=== PATIENT | male | born 1960 | race Caucasian/White ===

== ENCOUNTER 2017-07-01 14:47 | Inpatient (IN) | payer MEDICAID ==
[~2017-07-01] VITALS: Ht 167.6 cm; Wt 65.6 kg
[2017-07-01] MEDS ORDERED: SODIUM CHLORIDE 0.9% 1,000 ML IV ONE (15:15)
[2017-07-01] MEDS ORDERED: HALOPERIDOL LACTATE 5 MG/ML VIAL IM ONE (15:30)
[2017-07-01 15:39] LABS: EOSINOPHILS % (AUTO) 0 % (1.0-6.0); HEMATOCRIT 32.7 % (41-53); HEMOGLOBIN 11.2 g/dL (13.5-17.5); LYMPHOCYTES # (AUTO) 0.5 K/uL (1.0-4.8); LYMPHOCYTES % (AUTO) 2.8 % (22.0-44.0); MEAN CORPUSCULAR HGB CONC 34.3 G/dL (31.0-37.0); MEAN CORPUSCULAR VOLUME 90 fL (80-100); MONOCYTES % (AUTO) 5.3 % (2.0-9.0); NEUTROPHILS # (AUTO) 17.5 K/uL (1.8-7.7); PLATELET COUNT (AUTO) 276 K/uL (150-450); RED BLOOD CELL COUNT(AUTO) 3.62 MIL/uL (4.50-5.90); RED CELL DISTRIBUTION WIDTH 15.2 % (11.5-14.5)
[2017-07-01 15:41] LABS: APPEARANCE,URINE CLOUDY (CLEAR); GLUCOSE, URINE (UA) NEGATIVE (NEGATIVE); KETONES,URINE TRACE mg/dL (NEGATIVE); LEUKOCYTE ESTERASE ,URINE NEGATIVE (NEGATIVE); OCCULT BLOOD,URINE NEGATIVE (NEGATIVE); PROTEIN,URINE NEGATIVE (NEGATIVE)
[2017-07-01 15:41] LABS: ANION GAP 13 mmol/L (8-16); CALCIUM, TOTAL 9.2 mg/dL (8.8-10.5); CARBON DIOXIDE 22 mmol/L (22-29); CHLORIDE 104 mmol/L (98-107); CREATININE 1.01 mg/dL (0.60-1.30); GLOMERULAR FILTR. RATE CALC > 60 mL/min (>60); POTASSIUM 3.8 mmol/L (3.5-5.1); SODIUM SERUM 139 mmol/L (136-145); UREA NITROGEN, BLOOD 22 mg/dL (7-18)
[2017-07-01 15:45] LABS: NEUTROPHILS % (AUTO) 91.9 % (40.0-70.0)
[2017-07-01 16:06] LABS: ALANINE AMINOTRANSFERASE 44 U/L (12-78); ALBUMIN 3.5 g/dL (3.4-5.0); ASPARTATE AMINOTRANSFERASE 47 U/L (15-37); BILIRUBIN,TOTAL 0.5 mg/dL (0.1-1.0); CREATINE KINASE, TOTAL 977 U/L (39-308); TOTAL PROTEIN, SERUM 7.3 g/dL (6.4-8.2)
[2017-07-01 16:10] LABS: RBC,URINE 0-2 /HPF (0-2)
[2017-07-01 16:11] LABS: SQUAMOUS EPITHELIAL CELL,UR Rare /LPF (None Seen)
[2017-07-01 16:32] LABS: CREATINE KINASE MB 11.9 ng/mL (0-5)
[2017-07-01] MEDS ORDERED: LORazepam 2 MG/ML VIAL IVP ONE (17:15)
[2017-07-01] MEDS ORDERED: GuaiFENesin/D-METHORPHAN [SUGAR-FREE] 200-20MG/10 ML SYRUP UDCUP PO PRN (17:45)
[2017-07-01] MEDS ORDERED: LORazepam 2 MG TABLET PO PRN (17:45)
[2017-07-01] MEDS ORDERED: LOPERAMIDE HCL 2 MG CAPSULE PO PRN (17:45)
[2017-07-01] MEDS ORDERED: OLANZapine 5 MG RAPDIS TABLET PO PRN (17:45)
[2017-07-01] MEDS ORDERED: TUBERCULIN, PURIFIED PROTEIN DERIVATIVE 5 TU/0.1 ML SYG ID ONE (17:45)
[2017-07-01] MEDS ORDERED: MAGNESIUM HYDROXIDE SUSPENSION 30 ML UDCUP PO PRN (17:45)
[2017-07-01] MEDS ORDERED: PROMETHAZINE HCL 25 MG TABLET PO PRN (17:45)
[2017-07-01] MEDS ORDERED: HydrOXYzine PAMOATE 50 MG CAPSULE PO PRN (17:45)
[2017-07-01] MEDS ORDERED: ACETAMINOPHEN 325 MG TABLET PO PRN (17:45)
[2017-07-01] MEDS ORDERED: ZOLPIDEM TARTRATE 10 MG TABLET PO PRN (17:45)
[2017-07-01] MEDS ORDERED: MAG HYDROX/AL HYDROX/SIMETH ES 30 ML SUSPENSION UDCUP PO PRN (17:45)
[2017-07-01 19:40] VITALS: BP 140/80
[2017-07-01] MEDS ORDERED: INFLUENZA VIRUS VACCINE QVS 2017-18 (3YR+)/PF 60 MCG/0.5 ML SYRINGE IM ONE (20:15)
[2017-07-01] MEDS: OLANZapine 5 MG RAPDIS TABLET PO SCH (20:28)
[2017-07-01] MEDS: THIAMINE HCL 100 MG TABLET PO SCH (20:28)
[2017-07-01] MEDS: SULFAMETHOX/TRIMETH DS 800-160 MG/TABLET PO SCH (20:40)
[2017-07-01] MEDS: DOXYCYCLINE 100 MG CAPSULE PO SCH (20:40)
[2017-07-02 06:22] VITALS: BP 128/82
[2017-07-02 08:02] VITALS: BP 143/81
[2017-07-02 08:20] LABS: BASOPHILS % (AUTO) 0.1 % (0.0-2.0); EOSINOPHILS % (AUTO) 0.4 % (1.0-6.0); HEMATOCRIT 33.8 % (41-53); HEMOGLOBIN 11.5 g/dL (13.5-17.5); LYMPHOCYTES # (AUTO) 1.3 K/uL (1.0-4.8); LYMPHOCYTES % (AUTO) 9.8 % (22.0-44.0); MEAN CORPUSCULAR HGB CONC 34.1 G/dL (31.0-37.0); MEAN CORPUSCULAR VOLUME 91 fL (80-100); MONOCYTES # (AUTO) 0.8 K/uL (0.1-1.0); MONOCYTES % (AUTO) 6.4 % (2.0-9.0); NEUTROPHILS # (AUTO) 10.7 K/uL (1.8-7.7); NEUTROPHILS % (AUTO) 83.3 % (40.0-70.0); PLATELET COUNT (AUTO) 295 K/uL (150-450); RED BLOOD CELL COUNT(AUTO) 3.72 MIL/uL (4.50-5.90); RED CELL DISTRIBUTION WIDTH 15.5 % (11.5-14.5); WHITE BLOOD COUNT (AUTO) 12.8 K/uL (4.5-11.0)
[2017-07-02] MEDS: THIAMINE HCL 100 MG TABLET PO SCH ×2 (08:47→17:03)
[2017-07-02] MEDS: DOXYCYCLINE 100 MG CAPSULE PO SCH ×2 (08:47→17:03)
[2017-07-02] MEDS: CloNIDine HCL 0.1 MG TABLET PO SCH ×2 (08:47→17:03)
[2017-07-02] MEDS: SULFAMETHOX/TRIMETH DS 800-160 MG/TABLET PO SCH ×2 (08:47→17:03)
[2017-07-02] MEDS: FOLIC ACID 1 MG TABLET PO SCH (08:47)
[2017-07-02 09:42] LABS: ALANINE AMINOTRANSFERASE 39 U/L (12-78); ALBUMIN 3.1 g/dL (3.4-5.0); ANION GAP 12 mmol/L (8-16); ASPARTATE AMINOTRANSFERASE 35 U/L (15-37); BILIRUBIN,TOTAL 0.5 mg/dL (0.1-1.0); CALCIUM, TOTAL 8.9 mg/dL (8.8-10.5); CARBON DIOXIDE 24 mmol/L (22-29); CHLORIDE 107 mmol/L (98-107); CREATININE 0.83 mg/dL (0.60-1.30); GLOMERULAR FILTR. RATE CALC > 60 mL/min (>60); POTASSIUM 3.5 mmol/L (3.5-5.1); SODIUM SERUM 143 mmol/L (136-145); THYROID STIMULATING HORMONE 0.51 uIU/mL (0.36-3.74); TOTAL PROTEIN, SERUM 6.8 g/dL (6.4-8.2); UREA NITROGEN, BLOOD 16 mg/dL (7-18)
[2017-07-02] MEDS: MULTIVITAMINS WITH MINERALS, THERAPEUTIC TABLET PO SCH (12:33)
[2017-07-02 16:00] VITALS: BP 138/88
[2017-07-02] MEDS: OLANZapine 5 MG RAPDIS TABLET PO SCH (20:00)
[2017-07-03 06:58] VITALS: BP 108/83
[2017-07-03 08:17] VITALS: BP 116/80
[2017-07-03] MEDS: THIAMINE HCL 100 MG TABLET PO SCH ×2 (08:44→16:21)
[2017-07-03] MEDS: FOLIC ACID 1 MG TABLET PO SCH (08:45)
[2017-07-03] MEDS: SULFAMETHOX/TRIMETH DS 800-160 MG/TABLET PO SCH ×2 (08:45→16:21)
[2017-07-03] MEDS: DOXYCYCLINE 100 MG CAPSULE PO SCH ×2 (08:45→16:21)
[2017-07-03] MEDS: CloNIDine HCL 0.1 MG TABLET PO SCH ×2 (08:45→16:21)
[2017-07-03] MEDS: MULTIVITAMINS WITH MINERALS, THERAPEUTIC TABLET PO SCH (12:26)
[2017-07-03 15:25] VITALS: BP 146/93
[2017-07-03 16:20] VITALS: BP 117/72
[2017-07-03] MEDS ORDERED: IBUPROFEN 600 MG TABLET PO PRN (18:45)
[2017-07-03] MEDS: OLANZapine 10 MG RAPDIS TABLET PO SCH (20:43)
[2017-07-04 06:24] VITALS: BP 130/82
[2017-07-04 08:10] VITALS: BP 138/88
[2017-07-04] MEDS: SULFAMETHOX/TRIMETH DS 800-160 MG/TABLET PO SCH ×2 (08:29→16:38)
[2017-07-04] MEDS: THIAMINE HCL 100 MG TABLET PO SCH ×2 (08:29→16:38)
[2017-07-04] MEDS: FOLIC ACID 1 MG TABLET PO SCH (08:29)
[2017-07-04] MEDS: DOXYCYCLINE 100 MG CAPSULE PO SCH ×2 (08:29→16:38)
[2017-07-04] MEDS: CloNIDine HCL 0.1 MG TABLET PO SCH ×2 (08:29→16:38)
[2017-07-04] MEDS ORDERED: OLAN10TA22 PO (11:07)
[2017-07-04] MEDS: MULTIVITAMINS WITH MINERALS, THERAPEUTIC TABLET PO SCH (12:27)
[2017-07-04 16:00] VITALS: BP 140/90
[2017-07-04] MEDS: OLANZapine 10 MG RAPDIS TABLET PO SCH (20:25)
[2017-07-05 05:38] VITALS: BP 135/73
[2017-07-05] MEDS: SULFAMETHOX/TRIMETH DS 800-160 MG/TABLET PO SCH ×2 (08:16→16:17)
[2017-07-05] MEDS: DOXYCYCLINE 100 MG CAPSULE PO SCH ×2 (08:16→16:17)
[2017-07-05] MEDS: THIAMINE HCL 100 MG TABLET PO SCH ×2 (08:16→16:17)
[2017-07-05] MEDS: FOLIC ACID 1 MG TABLET PO SCH (08:16)
[2017-07-05] MEDS: CloNIDine HCL 0.1 MG TABLET PO SCH ×2 (08:16→16:17)
[2017-07-05 08:31] VITALS: BP 120/75
[2017-07-05] MEDS ORDERED: NALTREXONE HCL 50 MG TABLET PO SCH (09:00)
[2017-07-05] MEDS: MULTIVITAMINS WITH MINERALS, THERAPEUTIC TABLET PO SCH (12:08)
[2017-07-05] MEDS ORDERED: OLAN10TA6 PO (13:43)
[2017-07-05] MEDS ORDERED: NALT50TA6 PO (13:43)
[2017-07-05] MEDS ORDERED: DOXY100C PO (13:43)
[2017-07-05 16:32] VITALS: BP 136/85
== END 2017-07-05 18:00 | disposition home or self-care (01) | DRG 751 ==
LOC: EMS 14:49 → EDBD 14:49 → B3A 17:42
PROVIDERS: ADMIT Psychiatry & Neurology Psychiatry; ATTEND Psychiatry & Neurology Psychiatry
DX: F29 Unspecified psychosis not due to a substance or known physiological condition (principal); Z78.1 Physical restraint status; F17.200 Nicotine dependence, unspecified, uncomplicated; F12.10 Cannabis abuse, uncomplicated; D64.9 Anemia, unspecified; S99.822A Other specified injuries of left foot, initial encounter; M54.2 Cervicalgia; R03.0 Elevated blood-pressure reading, without diagnosis of hypertension; G89.29 Other chronic pain; X58.XXXA Exposure to other specified factors, initial encounter; Y93.89 Activity, other specified; Z59.0 Homelessness; Y92.89 Other specified places as the place of occurrence of the external cause; Y99.8 Other external cause status
CPT/HCPCS: 51701; 83036; 84439; 84443; 86592; 90471; 93005; 96361; 96372; 96374; 99285; G0480; J1630; J2060; J7030

== ENCOUNTER 2017-07-08 05:22 | Emergency (ER) | payer MEDICAID, OTHER ==
[~2017-07-08] VITALS: Ht 167.6 cm; Wt 63.6 kg
[~2017-07-08 05:22] MED LIST: DOXY100C PO; NALT50TA6 PO; OLAN10TA22 PO; OLAN10TA6 PO
[2017-07-08] MEDS ORDERED: OLAN10TA3 PO (05:43)
[2017-07-08] MEDS ORDERED: OLANZapine 5 MG TABLET PO ONE (06:30)
[2017-07-08] MEDS ORDERED: KETOROLAC TROMETHAMINE 60 MG/2 ML VIAL IM ONE (06:30)
[2017-07-08 08:31] VITALS: BP 119/79
== END 2017-07-08 08:32 | disposition home or self-care (01) ==
LOC: EMS 05:23
DX: S90.812A Abrasion, left foot, initial encounter (principal); L08.9 Local infection of the skin and subcutaneous tissue, unspecified; J45.909 Unspecified asthma, uncomplicated; I10 Essential (primary) hypertension; X58.XXXA Exposure to other specified factors, initial encounter; Y93.89 Activity, other specified; Y92.89 Other specified places as the place of occurrence of the external cause; Y99.8 Other external cause status
CPT/HCPCS: 96372; 99284; J1885